=== PATIENT | male | born 1965 | race Caucasian/White ===

== ENCOUNTER → 2023-12-19 16:28 | Outpatient (REF) | payer BC, SELFPAY | LOC: RAD 16:28 | PROVIDERS: ATTENDING PHYSICIAN Physician Assistant Medical; FAMILY PHYSICIAN Family Medicine | DX: J40 Bronchitis, not specified as acute or chronic (principal); R06.2 Wheezing; D83.9 Common variable immunodeficiency, unspecified | CPT/HCPCS: 71046 ==

== ENCOUNTER → 2024-06-08 15:16 | Outpatient (REF) | payer BC, SELFPAY | LOC: RAD 15:16 | PROVIDERS: ATTENDING PHYSICIAN Family Medicine | DX: M54.12 Radiculopathy, cervical region (principal) | CPT/HCPCS: 72050 ==

== ENCOUNTER → 2025-01-21 08:03 | Outpatient (REF) | payer BC, SELFPAY | LOC: RAD 08:03 | PROVIDERS: ATTENDING PHYSICIAN Physician Assistant Medical; FAMILY PHYSICIAN Family Medicine | DX: K40.90 Unilateral inguinal hernia, without obstruction or gangrene, not specified as recurrent (principal) | CPT/HCPCS: 76882 ==